=== PATIENT | male | born 1950 | race Caucasian/White ===

== ENCOUNTER 2016-07-04 06:44 | Day surgery (SDC) | payer OTHER ==
[~2016-07-04] VITALS: Ht 175.3 cm; Wt 73.2 kg
[~2016-07-04 06:44] MED LIST: GLIP5TAB13 PO; HYD25 PO; HYDR-3672 PO; LOSA100T7 PO; METO-407 PO; NOVO7030 SC
[2016-07-04 08:56] VITALS: Ht 175.3 cm; Wt 73.2 kg
[2016-07-04] MEDS ORDERED: ASPI-664 PO (09:03)
[2016-07-04 09:06] VITALS: BP 125/64; PULSE 70; RESP 20
[2016-07-04] MEDS ORDERED: FENTAnyl 50 MCG/ML VIAL ONE (10:27)
[2016-07-04] MEDS ORDERED: MIDAZOLAM 1 MG/ML 2 ML INJ ONE (10:27)
--- NOTE | 2016-07-04 10:43 | GILP ---
DATE OF PROCEDURE: 07/04/2016 NAME OF PROCEDURES: Colonoscopy. SURGEON: Cisco Schultz MD PREOPERATIVE DIAGNOSIS: Screening colonoscopy. POSTOPERATIVE DIAGNOSES: 1. Colonoscopy all the way to the cecum. 2. Poor prep making the exam suboptimal. 3. Internal hemorrhoids. INDICATION FOR THE PROCEDURE: Mr. Olaf Interiano is a 65-year-old male patient who was scheduled for screening colonoscopy. The procedure and possible complications are well explained to the patient. He understood and conse nted to the procedure. DESCRIPTION OF PROCEDURE: Under the influence of fentanyl and Versed, the colonoscope was carefully introduced in the rectum, and under direct vision, it was advanced all the way to the cecum. FINDINGS: The patient had poor prep making the exam suboptimal. The patient was noted to have inte rnal hemorrhoids. No gross neoplasm was identified. The patient tolerated the procedure very well, and there was no complication from the procedure. At the end of the procedure, he was awake with stable vital signs, and he was discharged home to the are of his family. IMPRESSION: 1. Colonoscopy all the way to the cecum. 2. Poor prep making the exam suboptimal. 3. Internal hemorrhoids. 4. No gross neoplasm was identified. PLAN: Because of the poor prep and suboptimal nature of the examination, would recommend repeat col onoscopy with better preparation within 2 years. Dictated By: CISCO CISNEROS/RE Conf#: [id number] DID#: [id number]
[2016-07-04 10:53] VITALS: BP 117/62; RESP 18
== END 2016-07-04 13:40 | disposition home or self-care (01) ==
LOC: GIL 06:44
PROVIDERS: ATTEND Internal Medicine Gastroenterology
DX: Z12.11 Encounter for screening for malignant neoplasm of colon (principal); K64.8 Other hemorrhoids; E11.9 Type 2 diabetes mellitus without complications
CPT/HCPCS: 45378; 82962; J2250; J3010